=== PATIENT | female | born 1930 | race Caucasian/White ===

== ENCOUNTER 2016-10-05 10:32 | Inpatient (IN) | payer OTHER ==
[~2016-10-05] VITALS: Ht 157.5 cm; Wt 71.4 kg
[~2016-10-05 10:32] MED LIST: ASPIR 8181 M1 PO; ASPIRIN81 M1 PO; ATIVAN0.5 MG PO; ATORVASTATIN CA20 MG PO; CARVEDILOL12.5 MG PO; CHERATUSSIN AC473 ML PO; CHILD ASPIRIN81 M1 PO; CIPRO500 MG PO; CITRACAL + D E1 EACH PO; CITRACAL SOFT1 EACH PO; CORTISONE57 GM TP; CRANBERRY500 M2 PO; DOXYCYCLINE HY100 M3 PO; ERGOCALCIF50000 UNIT PO; ESCITALOPRAM OX10 MG PO; FLONASE16 G1 BOTH NARES; FORTEO20 MICROGR SC; HYDROCHLOROTHIA25 MG PO; LEXAPRO10 MG PO; LIPITOR20 MG PO; LORATADINE10 M2 PO; MECLIZINE HCL25 M3 PO; METOPROLOL TART25 MG PO; NEURONTIN100 MG PO; NORCO 5/3251 TABLET PO; PANTOPRAZOLE SO40 MG PO; PROTONIX40 MG PO; ROBITUSSIN DM118 ML PO; TEMOVATE 0.05%30 GM TP; TYLENOL REGULA325 MG PO; VITAMIN D31000 UNI2 PO; VITAMIN D400 UNI1 PO; WELLBUTRIN SR150 MG PO; ZOFRAN4 MG PO; ZYBAN 150 MG T150 MG PO; ZYRTEC5 MG PO
[2016-10-05 11:24] LABS: HEMATOCRIT 35.4 % (36.0-46.0); MCH 28.6 PG (29.0-34.0); MCHC 31.6 G/DL (30.0-36.0); MCV 90.3 FL (83-99); MEAN PLAT.VOLUME 9.9 uM^3 (9.5-12.4); PLATELET COUNT 251 K/uL (156-360); RBC DIS.WIDTH-CV 15.9 % (11.8-14.6); RBC DIS.WIDTH-SD 50.9 % (39-53); RED BLOOD COUNT 3.92 M/uL (3.80-5.20)
[2016-10-05 11:35] LABS: CHLORIDE 102 mEq/L (99-109); POTASSIUM 3.7 mEq/L (3.7-5.4); SODIUM 140 mEq/L (136-147)
[2016-10-05 11:37] LABS: GLUCOSE 154 mg/dL (70-99)
[2016-10-05 11:38] LABS: ANION GAP 10 MEQ/L (2-14)
[2016-10-05 11:40] LABS: GFR ESTIMATE (CALCULATED) > 59 mL/min/
[2016-10-05 11:41] LABS: UREA NITROGEN (BUN) 14 mg/dL (9-23)
[2016-10-05 11:46] LABS: TROP-I INTERPRETATION NEGATIVE; TROPONIN-I < 0.01 ng/mL (0.0-0.30)
[2016-10-05 12:25] LABS: ADD MIUA? NO; BILIRUBIN NEGATIVE; BLOOD NEGATIVE; COLOR YELLOW ((YELLOW)); GLUCOSE (STRIP) NEGATIVE; KETONES NEGATIVE; LEUKOCYTES NEGATIVE; NITRITE NEGATIVE; PROTEIN (STRIP) NEGATIVE; SPECIFIC GRAVITY 1.019 (1.000-1.030); UCUL ADDED? NO; UROBILINOGEN 0.2 MG/DL (0.2-1.0)
[2016-10-05] MEDS ORDERED: VITRON-C TABLE1 EACH PO (14:47)
[2016-10-05] MEDS ORDERED: TYLENOL EXTRA500 MG PO (14:49)
[2016-10-05] MEDS ORDERED: ADVAIR 250/501 DISK IH (14:50)
[2016-10-05] MEDS ORDERED: LIPITOR20 MG PO (14:53)
[2016-10-05] MEDS ORDERED: PREDNISONE5 MG PO (14:53)
[2016-10-05] MEDS ORDERED: PEPCID COMPLET1 EACH PO (14:55)
[2016-10-05] MEDS ORDERED: DEPAKOTE SPRIN125 MG PO (14:56)
[2016-10-05] MEDS ORDERED: ZOFRAN8 MG PO (14:57)
[2016-10-05] MEDS ORDERED: ACETAMINOPHEN325 M1 PO (14:57)
[2016-10-05 15:47] VITALS: BP 152/80
[2016-10-05 22:18] LABS: METH RESISTANT S AUREUS PCR NEGATIVE (NEGATIVE)
[2016-10-05 22:23] LABS: PROBE CHECK PASS; SPECIMEN PROCESSING CONTROL PASS
[2016-10-05 23:59] VITALS: BP 161/73
[2016-10-06] VITALS (8 sets, daily range): BP systolic 107–181; BP diastolic 63–79
[2016-10-06 07:12] LABS: ANION GAP 10 MEQ/L (2-14); CHLORIDE 105 MEQ/L (99-109); GFR ESTIMATE (CALCULATED) > 59 mL/min/; POTASSIUM 3.7 MEQ/L (3.7-5.4); SAMPLE HEMOLYSIS CHECK 1; SAMPLE ICTERIC CHECK 0; SAMPLE LIPEMIA CHECK 0; SODIUM 142 MEQ/L (136-147); UREA NITROGEN (BUN) 15 mg/dL (9-23)
[2016-10-06 07:15] LABS: GLUCOSE 83 mg/dL (70-99); HEMATOCRIT 32.7 % (36.0-46.0); MCH 28.1 PG (29.0-34.0); MCHC 31.5 G/DL (30.0-36.0); MCV 89.1 FL (83-99); MEAN PLAT.VOLUME 10.2 uM^3 (9.5-12.4); PLATELET COUNT 236 K/uL (156-360); RBC DIS.WIDTH-CV 16.3 % (11.8-14.6); RBC DIS.WIDTH-SD 52.6 % (39-53); RED BLOOD COUNT 3.67 M/uL (3.80-5.20)
[2016-10-06 07:16] LABS: WHITE BLOOD COUNT 5.1 K/uL (4.1-10.2)
[2016-10-07 04:00] VITALS: BP 148/81
[2016-10-07 07:55] VITALS: BP 121/73
[2016-10-07 11:27] VITALS: BP 137/66
[2016-10-07] MEDS ORDERED: CARVEDILOL6.25 MG PO (14:02)
[2016-10-07 15:46] VITALS: BP 104/52
== END 2016-10-07 16:39 | disposition home or self-care (01) | DRG 309 ==
LOC: EME 10:32 → EDOF 14:03 → 5SOUTH 14:03
PROVIDERS: Emergency Medicine; Internal Medicine
DX: R00.1 Bradycardia, unspecified (principal); E87.2 Acidosis; J98.11 Atelectasis; E86.0 Dehydration; I95.9 Hypotension, unspecified; D72.829 Elevated white blood cell count, unspecified; I25.2 Old myocardial infarction; I10 Essential (primary) hypertension; K21.9 Gastro-esophageal reflux disease without esophagitis; K44.9 Diaphragmatic hernia without obstruction or gangrene; I25.10 Atherosclerotic heart disease of native coronary artery without angina pectoris; Z95.5 Presence of coronary angioplasty implant and graft; Z85.07 Personal history of malignant neoplasm of pancreas; Z88.1 Allergy status to other antibiotic agents; Z88.8 Allergy status to other drugs, medicaments and biological substances
CPT/HCPCS: 71010; 71250; 80048; 81003; 83605; 84484; 85027; 86850; 86900; 86901; 87040; 87641; 93005; 93971; 94640; 94640 76; 99281; 99285; J0360; J0692; J1644; J7030; J7050; J7120; J7512